=== PATIENT | female | born 1975 | race Caucasian/White ===

== ENCOUNTER → 2016-12-19 | Outpatient (CLI) | payer BC ==
--- NOTE | 2016-12-19 08:16 | US ---
EXAMINATION TYPE: US abdomen complete DATE OF EXAM: 12/19/2016 COMPARISON: NONE CLINICAL HISTORY: RUQ pain R10.11. Abd pain that moves from the RUQ to the LUQ EXAM MEASUREMENTS: Liver Length: 15.2 cm Gallbladder Wall: 0.2 cm CBD: 0.6 cm Spleen: 13.3 cm Right Kidney: 9.1 x 4.3 x 3.8 cm Left Kidney: 10.0 x 4.0 x 3.6 cm Pancreas: wnl Liver: 0.7cm left lobe cyst Gallbladder: wnl Evidence for sonographic Dumont's sign: NO CBD: wnl Spleen: slightly enlarged Right Kidney: wnl Left Kidney: wnl Upper IVC: wnl Abd Aorta: wnl The liver is homogenous. Left hepatic lobe cyst is noted. The intrahepatic portion of the IVC and pr oximal abdominal aorta are within normal limits. There is no evidence of cholelithiasis. Common viviane e duct is unremarkable. The visualized portions of the pancreas are homogenous. The spleen is mildl y enlarged. Kidneys are symmetric and free of hydronephrosis. No renal lesions are seen. IMPRESSION: 1. Mild splenomegaly. 2. Simple cyst left hepatic lobe.
== END | disposition home or self-care (01) ==
LOC: RADUSWWP 07:05
PROVIDERS: ATTEND Family Medicine
DX: K76.89 Other specified diseases of liver (principal); R16.1 Splenomegaly, not elsewhere classified
CPT/HCPCS: 76700

== ENCOUNTER → 2018-01-31 | Outpatient (CLI) | payer BC ==
--- NOTE | 2018-01-31 11:16 | US ---
EXAMINATION TYPE: US abdomen complete DATE OF EXAM: 01/31/2018 COMPARISON: Prior ultrasound December 19, 2016 CLINICAL HISTORY: R10.31 Rt lower Quadrant Pain. possible splenomegaly, known liver cyst EXAM MEASUREMENTS: Liver Length: 16.4 cm Gallbladder Wall: 0.2 cm CBD: 0.5 cm Spleen: 13.0 cm Right Kidney: 9.7 x 4.6 x 3.7 cm Left Kidney: 11.2 x 4.3 x 3.6 cm Pancreas: wnl Liver: 0.9cm cyst seen in left lobe, otherwise wnl Gallbladder: wnl Evidence for sonographic Dumont's sign: no CBD: wnl Spleen: wnl Right Kidney: wnl Left Kidney: wnl Upper IVC: wnl Abd Aorta: wnl The visualized liver is homogenous. There is redemonstration of thin-walled subcentimeter cyst left hepatic lobe felt stable. The intrahepatic portion of the IVC and visualized abdominal aorta are with in normal limits. There is no evidence of cholelithiasis. Common bile duct is unremarkable. The vi sualized portions of the pancreas are homogenous. The spleen is mildly enlarged but not significantl y changed from prior. No suspicious focal intrasplenic mass or surrounding ascites is seen.. Kidneys are symmetric and free of hydronephrosis. No renal lesions are seen. IMPRESSION: Stable mild splenomegaly. Stable benign thin-walled subcentimeter cyst left hepatic lobe.
== END | disposition home or self-care (01) ==
LOC: RADUSWWP 08:44
PROVIDERS: ATTEND Family Medicine
DX: K76.89 Other specified diseases of liver (principal); R16.1 Splenomegaly, not elsewhere classified; R10.31 Right lower quadrant pain
CPT/HCPCS: 76700

== ENCOUNTER → 2018-02-07 | Outpatient (CLI) | payer BC ==
--- NOTE | 2018-02-07 15:02 | MR ---
EXAMINATION TYPE: MR angio head wo con DATE OF EXAM: 02/07/2018 COMPARISON: CT brain 08/04/2009 HISTORY: Family hx aneurysm TECHNIQUE: Time of flight images focusing on the [place] of [place] were performed without contrast. Th ree-dimensional reconstructions performed on an alternate workstation. FINDINGS: There is no evident dissection, embolus, arterial venous malformation, or aneurysm. Anterio r posterior circulations are intact. Possible mucus retention cysts or polyps within the maxillary si nuses. The estimated delivery IMPRESSION: No significant abnormalities evident.
== END | disposition home or self-care (01) ==
LOC: RADMRIMAIN 11:48
PROVIDERS: ATTEND Family Medicine
DX: Z13.6 Encounter for screening for cardiovascular disorders (principal); Z82.49 Family history of ischemic heart disease and other diseases of the circulatory system
CPT/HCPCS: 70544

== ENCOUNTER → 2019-03-04 | Outpatient (CLI) | payer BC ==
--- NOTE | 2019-03-05 13:21 | MM ---
Reason for exam: screening (asymptomatic). Last mammogram was performed 4 years and 10 months ago. History: Patient is postmenopausal. Benign left mammotome panel of the left breast, December 28, 2012. Physical Findings: A clinical breast exam by your physician is recommended on an annual basis and results should be correlated with mammographic findings. MG Screening Mammo w CAD Bilateral CC and MLO view(s) were taken. Prior study comparison: May 16, 2014, bilateral MG screening mammo w CAD. July 05, 2013, left breast MG diagnostic mammo LT w CAD. The breast tissue is heterogeneously dense. This may lower the sensitivity of mammography. Benign appearing calcifications in the right breast. Previous mammotome biopsy in the left breast. ASSESSMENT: Benign, BI-RAD 2 RECOMMENDATION: Routine screening mammogram of both breasts in 1 year.
== END | disposition home or self-care (01) ==
LOC: RADMAMWWP 16:35
PROVIDERS: ATTEND Family Medicine
DX: Z12.31 Encounter for screening mammogram for malignant neoplasm of breast (principal)
CPT/HCPCS: 77067

== ENCOUNTER → 2023-02-07 | Outpatient (CLI) | payer BC ==
--- NOTE | 2023-02-07 12:57 | CT ---
EXAMINATION TYPE: CT heart w calcium score DATE OF EXAM: 02/07/2023 COMPARISON: None HISTORY: 47-year-old female E78.2, Screening for cardiovascular disorder. Z13.9 CT DLP: 85.3 mGycm Automated exposure control for dose reduction was used. CT CALCIUM SCORING Coronary calcium is a marker for plaque (fatty deposits) in a blood vessel or atherosclerosis (harden ing of the arteries). The presence and amount of calcium detected in a coronary artery by the CT sca n, indicates the presence and amount of atherosclerotic plaque. These calcium deposits appear years before the development of heart disease symptoms such as chest pain and shortness of breath. A calcium score is computed for each of the coronary arteries based upon the volume and density of th e calcium deposits. This can be referred to as your calcified plaque burden. It does not correspond directly to the percentage of narrowing in the artery but does correlate with the severity of the un derlying coronary atherosclerosis. PROCEDURE TECHNIQUE - Prospective Gating was used. Slice thickness: 3mm. Density threshold (HU): 130, Pixel threshold: 3, Algorithm: discrete. RESULTS Region: LM Calcium Score ([place]): 0 Volume (mm3): 0 Mass (g): 0 Region: RCA Calcium Score ([place]): 0 Volume (mm3): 0 Mass (g): 0 Region: LAD Calcium Score ([place]): 0 Volume (mm3): 0 Mass (g): 0 Region: CX Calcium Score ([place]): 0 Volume (mm3): 0 Mass (g): 0 Region: PDA Calcium Score ([place]): 0 Volume (mm3): 0 Mass (g): 0 Total: Calcium Score ([place]atston): 0 Volume (mm3): 0 Mass (g): 0 INCIDENTAL: No significant incidental abnormality seen. IMPRESSION: Calcium Score: 0 Implication: No identifiable plaque. Risk of Coronary Artery Disease: Very low, generally less than 5%.
== END | disposition home or self-care (01) ==
LOC: RADCTMAIN 09:14
PROVIDERS: ATTEND Internal Medicine
DX: Z13.6 Encounter for screening for cardiovascular disorders (principal); E78.2 Mixed hyperlipidemia
CPT/HCPCS: 75571

== ENCOUNTER → 2023-02-07 | Outpatient (CLI) | payer BC ==
--- NOTE | 2023-02-08 09:27 | MM ---
Reason for Exam: Screening (asymptomatic). Last mammogram was performed 3 year(s) and 11 month(s) ago. Patient History: Menarche at age 10. First Full-Term at age 27. Postmenopausal. 12/28/2012, Benign Core Biopsy on the left side. Risk Values: Manuela 5 year model risk: 1.3%. NCI Lifetime model risk: 11.8%. Prior Study Comparison: 07/05/2013 Left Diagnostic Mammogram, [facility]. 05/16/2014 Bilateral Screening Mammogram, [facility]. 03/04/2019 Bilateral Screening Mammogram, [facility]. Tissue Density: There are scattered fibroglandular densities. Findings: Analyzed By CAD. Left breast biopsy clip. There is no suspicious group of microcalcifications or new suspicious mass. Overall Assessment: Benign, BI-RAD 2 Management: Screening Mammogram of both breasts in [address] [facility] will attempt to contact patient to return for supplemental views and ultrasound if indicated. Patient should continue monthly self-breast exams. A clinical breast exam by your physician is recommended on an annual basis. This exam should not preclude additional follow-up of suspicious palpable abnormalities. Note on Manuela scores and lifetime risk: 1. A Manuela score greater than 3% is considered moderate risk. If this is the case, consider specialist referral to assess eligibility for a risk reducing agent. 2. If overall lifetime risk for the development of breast cancer is 20% or higher, the patient may qualify for future screening with alternating mammogram and breast MRI. Electronically signed and approved by: Ton Mercer DO
== END | disposition home or self-care (01) ==
LOC: RADMAMWWP 07:06
PROVIDERS: ATTEND Obstetrics & Gynecology
DX: Z12.31 Encounter for screening mammogram for malignant neoplasm of breast (principal); Z78.0 Asymptomatic menopausal state
CPT/HCPCS: 77067

== ENCOUNTER → 2024-03-13 | Outpatient (CLI) | payer BC ==
--- NOTE | 2024-03-13 08:53 | US ---
EXAMINATION TYPE: US liver DATE OF EXAM: 03/13/2024 COMPARISON: Abdominal ultrasound 01/31/2018, 12/19/2016 CLINICAL INDICATION: Female, 48 years old with history of R74.8 ABNORMAL LEVELS OF OTHER SERUM ENZYME S; Patient denies any signs, symptoms, or relevant history TECHNIQUE: Grayscale and color Doppler imaging of the right upper quadrant was performed. FINDINGS: EXAM MEASUREMENTS: Liver Length: 15.8 cm Gallbladder Wall: 0.2 cm CBD: 0.6 cm Right Kidney: 8.1 x 3.7 x 3.8 cm [employer] NOTES: Pancreas: wnl Liver: Cystic area noted Gallbladder: wnl Evidence for sonographic Dumont's sign: No CBD: wnl Right Kidney: wnl The pancreas appears within normal limits. The liver is diffusely hyperechoic with redemonstration of a simple cyst within the left hepatic lobe measuring up to 1.4 cm. Noncirrhotic morphology. Gallblad filemon demonstrates no shadowing calculi, wall thickening or surrounding fluid. Negative sonographic Mur phy sign. The common bile duct is within normal limits. Right kidney demonstrates no hydronephrosis, solid mass, shadowing calculi. IMPRESSION: 1. No acute process. 2. Hepatic steatosis. [facility], , 03/13/2024 8:51 AM
== END | disposition home or self-care (01) ==
LOC: RADUSWWP 08:27
PROVIDERS: ATTEND Family Medicine
DX: K76.0 Fatty (change of) liver, not elsewhere classified (principal); R74.8 Abnormal levels of other serum enzymes
CPT/HCPCS: 76705